=== PATIENT | male | born 1995 | race Caucasian/White ===

== ENCOUNTER 2019-10-16 08:26 | Emergency (ER) | payer OTHER ==
[2019-10-16] MEDS ORDERED: Metoclopramide 10 MG/2 ML SDV IVPUSH ONE (08:56)
[2019-10-16] MEDS ORDERED: HYDROmorphone 1 MG/ML Syringe IVPUSH ONE (08:56)
[2019-10-16 08:59] VITALS: BP 148/85; PULSE 116
[2019-10-16] MEDS ORDERED: Lactated Ringers 1,000 ML IV SCH (09:00)
--- NOTE | 2019-10-16 09:01 | EDM.PDOC ---
ED HPI GENERAL MEDICAL PROBLEM - General Chief Complaint: Skin Complaint Stated Complaint: ABCESS ON BUTTOCK Time Seen by Provider: 10/16/19 08:45 Source of Information: Reports: Patient History Limitations: Reports: No Limitations - History of Present Illness INITIAL COMMENTS - FREE TEXT/NARRATIVE: 24-year-old male presents to the ED with gradually worsening pain in his perire ctal area. Patient states that it started morning the . Gradually intensified to the point that it is very painful to try and defecate and he can hardly sit. He believes he is running a low-grade fever. No chills. He has been taking Advil on a regular basis with the last tablet taken last evening. He did eat breakfast this morning which was fairly large with waffles etc. at 0730 hrs. Passing a bowel movement is very painful. No blood noted. Of note patient had incision and drainage of a perirectal abscess he believes in the same area about 6 years ago. No other abdominal surgery he is otherwise in good health. Patient did see Dr. Castro at [facility] on and was started on oral antibiotics which have not c been effective in controlling the pain or reducing the swelling. Current pain is 8 out of 10. She did not bring along any of his antibiotics. Onset: Gradual Onset Date: 10/20/19 Duration: Day(s):, Getting Worse Location: Reports: Other (Perirectal pain) Quality: Reports: Ache, Throbbing Severity: Severe (8 out of 10) Improves with: Reports: Rest Worsens with: Reports: Other (Being and touching the area is very painful. Also having a bowel movement is very painful.) Context: Reports: Other (Spontaneous occurrence). Denies: Activity, Exercise, Lifting, Sick Contact, Trauma Associated Symptoms: Reports: Fever/Chills, Malaise. 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 Last dose taken) Rectal Pain Score (Numeric/FACES): 8 - Related Data Allergies Allergy/AdvReac Type Severity Reaction Status Date / Time No Known Allergies Allergy Verified 10/16/19 08:58 Home Meds: Home Meds hydroCHLOROthiazide [Hydrochlorothiazide] 50 mg PO DAILY 10/16/19 [History] lisinopriL [Lisinopril] 40 mg PO DAILY 10/16/19 [History] oxyCODONE HCl/Acetaminophen [Percocet 5-325 mg Tablet] 1 - 2 each PO Q4H PRN #14 tablet 10/16/19 [Rx] Past Medical History - Past Surgical History HEENT Surgical History: Reports: Oral Surgery Other GI Surgeries/Procedures: Incision and drainage of perirectal abscess about 6 years ago. Social & Family History - Family History Endocrine/Metabolic: Reports: Diabetes, type II - Caffeine Use Caffeine Use: Reports: Soda - Living Situation & Occupation Living situation: Reports: Single Occupation: Employed ED ROS GENERAL - Review of Systems Review Of Systems: See Below Constitutional: Reports: Fever, Malaise. Denies: Decreased Appetite, Weight Loss HEENT: Reports: No Symptoms Respiratory: Reports: No Symptoms Cardiovascular: Reports: No Symptoms Endocrine: Reports: No Symptoms GI/Abdominal: Reports: Other (Painful defecation.). Denies: Hematochezia : Reports: No Symptoms Musculoskeletal: Reports: No Symptoms Skin: Reports: Other Neurological: Reports: No Symptoms (Perirectal pain with abscess formation.) Psychiatric: Reports: No Symptoms Hematologic/Lymphatic: Reports: No Symptoms Immunologic: Reports: No Symptoms ED EXAM, SKIN/RASH Exam: See Below Exam Limited By: No Limitations General Appearance: Alert, WD/WN, Mild Distress, Other (Prefers to be examined standing. Temperature is 36.6 with a heart rate of 116 and sinus. Respiratory of 16 BP 148/85 with a pulse ox of 100% on room air.) Eye Exam: Bilateral Eye: Normal Inspection, PERRL Throat/Mouth: Normal Inspection, Normal Lips, Normal Oropharynx, Other Head: Atraumatic, Normocephalic (Is minimally dry.) Neck: Normal Inspection, Supple, Non-Tender, Full Range of Motion. No: Carotid Bruit, Lymphadenopathy (L), Lymphadenopathy (R) Respiratory/Chest: No Respiratory Distress, Lungs Clear, Normal Breath Sounds, No Accessory Muscle Use, Chest Non-Tender Cardiovascular: Regular Rate, Rhythm, No Edema, No Gallop, No Murmur, No Rub, Tachycardia Peripheral Pulses: 3+: Carotid (L), Carotid (R), Posterior Tibial (L), Posterior Tibial (R), Dorsalis Pedis (L), Dorsalis Pedis (R) GI/Abdominal: Normal Bowel Sounds, Soft, Non-Tender, No Organomegaly, No Mass, Pelvis Stable, Other (No surgical scars) (Male) Exam: No Hernia Rectal (Males) Exam: Mass (Patient has a perirectal abscess at the 9 o'clock position if he is lying prone. Unable to tolerate rectal exam due to pain.), Perirectal Abscess. No: Normal Rectal Tone Back Exam: Normal Inspection. No: Full Range of Motion, CVA Tenderness (L), CVA Tenderness (R) Extremities: Normal Inspection, Normal Range of Motion, Non-Tender, No Pedal Edema Neurological: Alert, Oriented, CN II-XII Intact, Normal Cognition Psychiatric: Normal Affect, Normal Mood Skin: Warm, Dry, Intact, Other (Arianne-ring rectal abscess at the 9 o'clock position if he is lying prone. Unable to tolerate rectal exam due to pain) Location, Skin: Perirectal Associated features: Tenderness, Swelling (Ear tenderness). No: Induration, Scaling, Lymphangitis (Swelling) Course - Vital Signs Last Recorded V/S: Last Vital Signs Temp 36.6 C 10/16/19 08:55 Pulse 116 H 10/16/19 08:55 Resp 16 10/16/19 08:55 BP 148/85 H 10/16/19 08:55 Pulse Ox 100 10/16/19 08:55 - Orders/Labs/Meds Orders: Active Orders 24 hr Category Date Time Status Pelvis w Cont [CT] Stat Exams 10/16/19 09:10 Taken CULTURE WOUND [RM] Stat Lab 10/16/19 11:40 Ordered Lactated Ringers [Ringers, Lactated] 1,000 ml Med 10/16/19 09:00 Active IV ASDIRECTED Medication Orders Lactated Ringer's (Ringers, Lactated) 1,000 mls @ 150 mls/hr IV ASDIRECTED JOHN Last Admin: 10/16/19 09:26 Dose: 150 mls/hr Documented by: YOSHI Labs: Laboratory Tests 10/16/19 10/16/19 10/16/19 Range/Units 09:32 09:32 09:32 WBC 11.52 H (4.23-9.07) K/mm3 RBC 5.40 (4.63-6.08) M/mm3 Hgb 16.5 (13.7-17.5) gm/dl Hct 48.0 (40.1-51.0) % MCV 88.9 (79.0-92.2) fl MCH 30.6 (25.7-32.2) pg MCHC 34.4 (32.2-35.5) g/dl RDW Std Deviation 43.8 (35.1-43.9) fL Plt Count 224 (163-337) K/mm3 MPV 10.4 (9.4-12.3) fl Neutrophils % (Manual) 76 H (40-60) % Band Neutrophils % 0 (0-10) % Lymphocytes % (Manual) 12 L (20-40) % Atypical Lymphs % 0 % Monocytes % (Manual) 9 (2-10) % Eosinophils % (Manual) 1 (0.8-7.0) % Basophils % (Manual) 2 H (0.2-1.2) Platelet Estimate Adequate Plt Morphology Comment Normal RBC Morph Comment Normal Sodium 137 (136-145) mEq/L Potassium 3.7 (3.5-5.1) mEq/L Chloride 100 (98-107) mEq/L Carbon Dioxide 27 (21-32) mEq/L Anion Gap 13.7 (5-15) BUN 21 H (7-18) mg/dL Creatinine 1.5 H (0.7-1.3) mg/dL Est Cr Clr Drug Dosing 103.76 mL/min Estimated GFR (MDRD) 57 (>60) mL/min BUN/Creatinine Ratio 14.0 (14-18) Glucose 102 (74-106) mg/dL Calcium 9.5 (8.5-10.1) mg/dL Total Bilirubin 0.5 (0.2-1.0) mg/dL AST 21 (15-37) U/L ALT 57 (16-63) U/L Alkaline Phosphatase 56 (46-116) U/L C-Reactive Protein 6.1 H* (<1.0) mg/dL Total Protein 7.6 (6.4-8.2) g/dl Albumin 3.7 (3.4-5.0) g/dl Globulin 3.9 gm/dL Albumin/Globulin Ratio 1.0 (1-2) Urine Color (Yellow) Urine Appearance (Clear) Urine pH (5.0-8.0) Ur Specific Morrow (1.005-1.030) Urine Protein (Negative) Urine Glucose (UA) (Negative) Urine Ketones (Negative) Urine Occult Blood (Negative) Urine Nitrite (Negative) Urine Bilirubin (Negative) Urine Urobilinogen (0.2-1.0) Ur Leukocyte Esterase (Negative) Urine RBC (0-5) /hpf Urine WBC (0-5) /hpf Ur Epithelial Cells (0-5) /hpf Urine Bacteria (FEW) /hpf Urine Mucus (FEW) /hpf COVID-19 (VEDA) Negative (NEGATIVE) 10/16/19 Range/Units 10:47 WBC (4.23-9.07) K/mm3 RBC (4.63-6.08) M/mm3 Hgb (13.7-17.5) gm/dl Hct (40.1-51.0) % MCV (79.0-92.2) fl MCH (25.7-32.2) pg MCHC (32.2-35.5) g/dl RDW Std Deviation (35.1-43.9) fL Plt Count (163-337) K/mm3 MPV (9.4-12.3) fl Neutrophils % (Manual) (40-60) % Band Neutrophils % (0-10) % Lymphocytes % (Manual) (20-40) % Atypical Lymphs % % Monocytes % (Manual) (2-10) % Eosinophils % (Manual) (0.8-7.0) % Basophils % (Manual) (0.2-1.2) Platelet Estimate Plt Morphology Comment RBC Morph Comment Sodium (136-145) mEq/L Potassium (3.5-5.1) mEq/L Chloride (98-107) mEq/L Carbon Dioxide (21-32) mEq/L Anion Gap (5-15) BUN (7-18) mg/dL Creatinine (0.7-1.3) mg/dL Est Cr Clr Drug Dosing mL/min Estimated GFR (MDRD) (>60) mL/min BUN/Creatinine Ratio (14-18) Glucose (74-106) mg/dL Calcium (8.5-10.1) mg/dL Total Bilirubin (0.2-1.0) mg/dL AST (15-37) U/L ALT (16-63) U/L Alkaline Phosphatase (46-116) U/L C-Reactive Protein (<1.0) mg/dL Total Protein (6.4-8.2) g/dl Albumin (3.4-5.0) g/dl Globulin gm/dL Albumin/Globulin Ratio (1-2) Urine Color Yellow (Yellow) Urine Appearance Clear (Clear) Urine pH 7.0 (5.0-8.0) Ur Specific Morrow 1.020 (1.005-1.030) Urine Protein Negative (Negative) Urine Glucose (UA) Negative (Negative) Urine Ketones Negative (Negative) Urine Occult Blood Negative (Negative) Urine Nitrite Negative (Negative) Urine Bilirubin Negative (Negative) Urine Urobilinogen 0.2 (0.2-1.0) Ur Leukocyte Esterase Negative (Negative) Urine RBC Not seen (0-5) /hpf Urine WBC 0-5 (0-5) /hpf Ur Epithelial Cells Not seen (0-5) /hpf Urine Bacteria Few (FEW) /hpf Urine Mucus Few (FEW) /hpf COVID-19 (VEDA) (NEGATIVE) Meds: Medications Generic Name Dose Route Start Last Admin Trade Name Freq PRN Reason Stop Dose Admin Lactated Ringer's 1,000 mls @ 150 mls/hr 10/16/19 09:00 10/16/19 09:26 Ringers, Lactated IV 150 mls/hr ASDIRECTED JOHN Administration Discontinued Medications Generic Name Dose Route Start Last Admin Trade Name Freq PRN Reason Stop Dose Admin Hydromorphone HCl 1 mg 10/16/19 08:56 10/16/19 09:30 Dilaudid IVPUSH 10/16/19 08:57 1 mg ONETIME ONE Administration Metronidazole 500 mg/ Premix 100 mls @ 100 mls/hr 10/16/19 09:41 10/16/19 10:49 IV 10/16/19 10:40 100 mls/hr ONETIME ONE Administration Iopamidol 80 ml 10/16/19 10:55 10/16/19 10:55 Isovue-300 (61%) IVPUSH 10/16/19 10:56 80 ml ONETIME ONE Administration Lidocaine HCl 20 ml 10/16/19 11:08 Xylocaine 1% INJECT 07/12/20 11:09 ONETIME ONE Lidocaine HCl Confirm 10/16/19 11:11 Xylocaine 1% Administered 10/16/19 11:12 Dose 50 ml .ROUTE .STK-MED ONE Metoclopramide HCl 10 mg 10/16/19 08:56 10/16/19 09:28 Reglan IVPUSH 10/16/19 08:57 10 mg ONETIME ONE Administration - Radiology Interpretation Free Text/Narrative:: 4-year-old male presents to the ED with gradually worsening pain in his perirectal area over the last note October 12 and has gradually intensified in spite of taking oral antibiotics. - Re-Assessments/Exams Free Text/Narrative Re-Assessment/Exam: 10/16/19 11:00 Count is mildly elevated at 11.52. 76% neutrophils no bands cells reported. Hemoglobin is 16.5 with hematocrit of 48.0 suggesting mild hemoconcentration. Platelet counts 224,000. Sodium 137 with a potassium of 3.7. Chloride is 100 with a bicarb of 27. Anion gap is 13.7. BUN is 21 with a creatinine of 1.5. GFR is 57. Glucose is 102 calcium is 9.5. Liver function is normal. C-reactive protein is elevated at 6.1. Total protein 7.6 with an albumin fraction of 3.7. COVID 19 screen is negative. Jabier is seen the patient in the ED while here. He indicates that tentatively would be taken to the operating around 1300 hrs. today since he ate at 0730 hrs. this morning and a fairly large breakfast. Awaiting CT results of pelvis with IV contrast. 10/16/19 11:42 CT of the pelvis identified a perirectal abscess but no extension up into the pelvis. Cyst measures approximately 2.9 x 1.5 cm. Rounding fat is otherwise preserved. No intrapelvic abnormality is identified. Dr. Eugene therefore elected to perform incision and drainage of the perirectal abscess in the department. He did obtain a fair amount of pus and cultures were obtained. He advised patient to continue the antibiotics that Dr. Castro had placed him on already. I will give him a prescription for Percocet tablets 5/325 mg 1 or 2 every 4-6 hours as necessary for the next [address] days[address] Eugene will follow him up in the clinic to remove his packing in 48 hours time. 10/16/19 11:47 Patient states he is feeling much better after drainage of the abscess. I am going to send him home with the Percocet tablets as above. Will be seeing Dr. Eugene in clinic tomorrow. Departure - Departure Time of Disposition: 11:47 Disposition: Home, Self-Care 01 Condition: Fair Clinical Impression: Arianne-rectal abscess, Abscess, Perirectal abscess - Discharge Information *PRESCRIPTION DRUG MONITORING PROGRAM REVIEWED*: Not Applicable *COPY OF PRESCRIPTION DRUG MONITORING REPORT IN PATIENT KALA: Not Applicable Prescriptions: oxyCODONE HCl/Acetaminophen [Percocet 5-325 mg Tablet] 1 - 2 each PO Q4H PRN #14 tablet PRN Reason: pain relief. Instructions: Skin Abscess, [id number] Referrals: Andie Wang PA-C [Primary Care Provider] - Forms: ED Department Discharge, ED Return to Work/School Form Additional Instructions: Evaluation in the emergency room today in regards to development of a perirectal abscess gradually over the last [address] exam confirmed an abscess that is localized to the perirectal tissues. Dr. Eugene-from the department of surgery opened and drained the abscess in the emergency department and obtained a fair amount of pus. Cultures were obtained. Continue the antibiotics that Dr. Castro placed you on on . Use Percocet tabs 5/325 mg 1 or 2 every 4-6 hours necessary for pain relief for the next day or 2. If you need them longer than this they will cause constipation you will need to take MiraLAX powder 17 g daily to prevent constipation from occurring. Aloe up in clinic with Dr. Eugene tomorrow as planned. Sepsis Event Note (ED) - Focused Exam Vital Signs: Vital Signs Temp Pulse Resp BP Pulse Ox 10/16/19 08:55 36.6 C 116 H 16 148/85 H 100 - My Orders Last 24 Hours: My Active Orders 10/16/19 09:00 Lactated Ringers [Ringers, Lactated] 1,000 ml IV ASDIRECTED 10/16/19 09:10 Pelvis w Cont [CT] Stat - Assessment/Plan Last 24 Hours: My Active Orders 10/16/19 09:00 Lactated Ringers [Ringers, Lactated] 1,000 ml IV ASDIRECTED 10/16/19 09:10 Pelvis w Cont [CT] Stat
[2019-10-16] MEDS ORDERED: Iopamidol 755 Mg/ML 100 ML Bottle IVPUSH ONE (09:22)
[2019-10-16] MEDS ORDERED: metroNIDAZOLE/Normal Saline 500 MG in Premix Bag 1 BAG IV ONE (09:41)
[2019-10-16] MEDS ORDERED: Iopamidol 612 MG/ML 100 ML Bottle IVPUSH ONE (10:55)
[2019-10-16] MEDS ORDERED: Lidocaine 1% 20 ML MDV INJECT ONE (11:08)
[2019-10-16] MEDS ORDERED: Lidocaine 1% 50 ML MDV ONE (11:11)
--- NOTE | 2019-10-16 12:07 | PCM.PRNOTE ---
- Free Text/Narrative Note: Date of Service: 10/16/2019 Procedure: incision and drainage of perianal abscess Findings: approximately 30 cc of foul smelling pus drained from left perianal area. Aerobic and anaerobic cultures obtained. Detailed Report: Informed consent was obtained prior to starting the procedure at bedside with plan for local anesthetic. The left perianal area was cleansed with chloraprep. 20 cc 1% lidocaine was injected intradermally over the area of fluctuance and tenderness. An 11-blade scalpel was used to make a 1.5 cm stab incision. A hemostat was inserted into the underlying space, and a large amount of purulent, foul-smelling creamy fluid was released. Wound cultures obtained. Loculations were broken up with the hemostat. The wound was irrigated with sterile saline. Once no more pus was able to be expressed, the wound was packed with 1/4 in. iodoform strip packing. The patient tolerated the procedure well. He is instructed to continue his antibiotics and follow up in the clinic tomorrow for removal of packing.
--- NOTE | 2019-10-17 07:59 | CT ---
CT pelvis Technique: Multiple axial sections through the pelvis were obtained. Intravenous contrast was utilized. No oral contrast has been given. Findings: Low density area noted within the left perirectal soft tissues compatible with perirectal abscess measuring about 2.9 cm x 1.5 cm. Surrounding fat is otherwise preserved. No intrapelvic abnormality is seen. Bone window settings were reviewed which shows nothing acute. Impression: 1. Left-sided perirectal abscess measuring 2.9 cm x 1.5 cm. 2. No additional abnormality is appreciated. Diagnostic code #3 This report was dictated in MDT MTDD
== END 2019-10-16 12:06 | disposition home or self-care (01) ==
LOC: JD.ED 08:26
DX: K61.1 Rectal abscess (principal); Z20.828 Contact with and (suspected) exposure to other viral communicable diseases; Z79.899 Other long term (current) drug therapy
CPT/HCPCS: 36415; 46050; 72193; 80053; 81001; 85007; 85027; 86140; 87070; 87077; 87186; 87635; 96374; 96375; 99284; J1170; J2765; J3490; J7120; Q9967; 99283; U0002

== ENCOUNTER 2022-09-21 05:06 | Emergency (ER) | payer OTHER ==
[2022-09-21] MEDS ORDERED: Iopamidol 612 MG/ML 100 ML Bottle IVPUSH ONE (05:49)
[2022-09-21] MEDS ORDERED: Sodium Chloride 0.9% 1,000 ML IV SCH (06:00)
[2022-09-21 06:13] LABS: HEMATOCRIT 45.7 % (40.1-51.0); HEMOGLOBIN 16.2 gm/dl (13.7-17.5); MEAN CORPUSCULAR HEMOGLOBIN 31.3 pg (25.7-32.2); MEAN CORPUSCULAR HGB CONC 35.4 g/dl (32.2-35.5); MEAN CORPUSCULAR VOLUME 88.4 fl (79.0-92.2); MEAN PLATELET VOLUME 10.4 fl (9.4-12.3); PLATELET COUNT,PLT 227 K/mm3 (163-337); RED BLOOD CELL COUNT 5.17 M/mm3 (4.63-6.08)
[2022-09-21 06:18] LABS: ALBUMIN 3.9 g/dl (3.4-5.0); ANION GAP 13.4 (5-15); BILIRUBIN TOTAL 0.8 mg/dL (0.2-1.0); BUN/CREATININE RATIO 16.7 (14-18); CALCIUM 9.6 mg/dL (8.5-10.1); CREATININE 1.2 mg/dL (0.7-1.3); EST CRCL DRUG DOSING (CG) 126.29 mL/min; POTASSIUM,K 3.4 mEq/L (3.5-5.1); PROTEIN TOTAL,TP 7.7 g/dl (6.4-8.2)
[2022-09-21 06:24] LABS: BAND PERCENT MAN 0 % (0-10); BASOPHILS PERCENT MAN 1 (0.2-1.2); EOSINOPHILS PERCENT MAN 1 % (0.8-7.0); LYMPHOCYTES % ATYPICAL MANUAL 0 %; LYMPHOCYTES PERCENT MAN 16 % (20-40); MONOCYTES PERCENT MAN 7 % (2-10); PLATELET COUNT ESTIMATE ADEQUATE
[2022-09-21] MEDS ORDERED: Amoxicillin/Clavulanate K 875-125 MG Tab PO STA (07:53)
[2022-09-21 08:19] VITALS: BP 159/96; PULSE 99
== END 2022-09-21 08:20 | disposition home or self-care (01) ==
LOC: JD.ED 05:06
DX: K61.0 Anal abscess (principal); I10 Essential (primary) hypertension; Z79.899 Other long term (current) drug therapy
CPT/HCPCS: 36415; 72193; 80053; 85007; 85027; 96360; 96361; 99284; A9270; J7030; Q9967